=== PATIENT | female | born 2000 | race Caucasian/White ===

== ENCOUNTER 2021-04-03 19:40 | Emergency (ER) | payer OTHER ==
[~2021-04-03] VITALS: Ht 165.1 cm; Wt 99.8 kg
[2021-04-03 19:45] VITALS: BP 171/98
== END 2021-04-03 21:21 | disposition left against medical advice (07) ==
LOC: M.ERS 19:40
DX: H92.01 Otalgia, right ear (principal); Z53.21 Procedure and treatment not carried out due to patient leaving prior to being seen by health care provider